=== PATIENT | female | born 1990 | race Caucasian/White ===

== ENCOUNTER 2022-10-28 18:00 | Emergency (ER) | payer OTHER, SELFPAY ==
[2022-10-28] VITALS (7 sets, daily range): BP systolic 103–127; BP diastolic 59–73; PULSE 63–73; RESP 17–26; TEMP 36.8; O2SAT 98–100; BMI 26.6
--- NOTE | 2022-10-28 18:45 | DI.RAD.S_ITS ---
PROCEDURE: XR CHEST 1V INDICATIONS: chest pain, + , Ok'd by Doc. TECHNIQUE: One view of the chest was acquired. COMPARISON: None. FINDINGS: Surgical changes and devices: None. Lungs and pleura: Lungs are clear. No pleural effusions or pneumothorax. Mediastinum: Mediastinal contours appear normal. Heart size is normal. Bones and chest wall: No suspicious bony lesions. Overlying soft tissues appear unremarkable. IMPRESSION: No acute cardiopulmonary process. Dictated by: Terrence Lora M.D. on 10/28/2022 at 19:53 Approved by: Terrence Lora M.D. on 10/28/2022 at 19:53
[2022-10-28 18:58] LABS: Add Manual Diff / Slide Review NO; Basophils Absolute Auto 0 /uL (0-100); Basophils Percent Auto 0.3 % (0-2); Eosinophils Absolute Auto 100 /uL (0-450); Eosinophils Percent Auto 0.8 % (2-4); Lymphocytes Absolute Auto 2700 /uL (1100-4500); Lymphocytes Percent Auto 19.2 % (25-40); Mean Corpuscular HGB Conc 34.2 % (30-36); Mean Corpuscular Hemoglobin 30.9 PG (26-34); Mean Corpuscular Volume 90.2 fL (80-100); Monocytes Absolute Auto 800 /uL (0-900); Monocytes Percent Auto 5.6 % (3-14); Neutrophils Absolute Auto 10200 /uL (1500-7000); Neutrophils Percent Auto 74.1 % (50-75); Platelet Count 206 X10^3/uL (150-400); Red Blood Cell Count 4.21 X10^6/uL (4.0-5.2); Red Cell Distribution Width 12.9 % (11.6-14.8); White Blood Cell Count 13.8 X10^3/uL (4.5-11.0)
[2022-10-28 19:04] LABS: INR 1.1 (0.9-1.3); Prothrombin Time 12.1 SECONDS (10.1-12.7)
[2022-10-28 19:07] LABS: PTT Partial Thromboplastin Tim 28 SECONDS (26-36)
[2022-10-28 19:14] LABS: Alanine Aminotransferase 19 IU/L (<35); Albumin 4.2 g/dL (3.5-5.0); Albumin Globulin Ratio 1.3 (1.0-2.8); Alkaline Phosphatase 68 U/L (38-126); Aspartate Aminotransferase 25 IU/L (14-36); BUN Creatinine Ratio 15.8 (6-22); Bilirubin Total 0.9 mg/dL (0.2-1.3); Blood Urea Nitrogen 9 mg/dL (7-17); Calcium 8.7 mg/dL (8.4-10.2); Carbon Dioxide 24 mmol/L (22-32); Chloride 99 mmol/L (98-107); Creatine Kinase 63 U/L (30-135); Estimated Glomerular Filt Rate > 60 mL/min (>60); Globulin 3.3 g/dL (1.7-4.1); Glucose 88 mg/dL (70-100); HEMOLYSIS < 15 (0-50); Lipase 67 U/L (23-300); Magnesium 1.9 mg/dL (1.6-2.3); Potassium 3.5 mmol/L (3.4-5.1); Sodium 132 mmol/L (137-145); Total Protein 7.5 g/dL (6.3-8.2)
[2022-10-28 19:25] LABS: NT-proBNP (BNP-Adult 18+) 82 pg/mL (<125); Troponin I < 0.012 ng/mL (0.01-0.034)
--- NOTE | 2022-10-28 22:45 | ED_ITS ---
HPI - Chest Pain General Chief Complaint: Chest Pain Stated Complaint: new onset chest pain Time Seen by Provider: 10/28/22 21:55 Source: patient Mode of arrival: Ambulatory Limitations: no limitations History of Present Illness HPI narrative: Patient is a 32-year-old healthy female presents today with right-sided chest pain. She says history yesterday hurts when she takes deep breath seems to be in the same area not reproducible with palpation. She denies any fever chills or cough. sHe is no abdominal pain nausea vomiting or vaginal bleeding. She is not having any shortness of breath. She is followed by OB she had an ultrasound yesterday which showed an IUP. Related Data Allergies Allergy/AdvReac Type Severity Reaction Status Date / Time No Known Drug Allergies Allergy Verified 10/28/22 18:13 Review of Systems Review of Systems ROS Unobtainable: All systems reviewed & are unremarkable except as noted in HPI and below Patient History Social History Smoking Status: Never smoker Smoking Status: Never smoker alcohol intake frequency: 0-2 drinks per day Substance Use Type: does not use Exam Initial Vital Signs Initial Vital Signs: Vital Signs Temperature 98.3 F 10/28/22 18:07 Pulse Rate 68 10/28/22 18:07 Respiratory Rate 20 10/28/22 18:07 Blood Pressure 122/69 10/28/22 18:07 Pulse Oximetry 99 10/28/22 18:07 Oxygen Delivery Method Room Air 10/28/22 18:07 GENERAL: Alert pleasant well-appearing 32-year-old female and in no acute distress. HEENT: Head atraumatic,EOMI, pupils reactive, face symmetric, moist mucous membranes CARDIOVASCULAR: Regular rate and rhythm without murmurs, rubs or gallops. RESPIRATORY: Breath sounds equal bilaterally, no wheezes rales or rhonchi. ABDOMEN: Soft, nontender. Normoactive bowel sounds all 4 quadrants. No guarding or rebound. EXTREMITIES: Normal range of motion, no clubbing or edema. Neurovascularly intact NEUROLOGICAL: Alert and oriented x4. SKIN: Warm, dry, no laceration, no petechiae, no rashes or lesions. Scores HEART Score Heart Score history: Slightly Suspicious Heart Score EKG: Normal Heart Score Age: < 45 years old Heart Score risk factors: No known risk factors Heart Score troponin: < or = to normal limit Heart Score Total: 0 Course Orders Ordered: ED Orders 10/28/22 22:55 EKG-12 Lead Stat Vital Signs Vital signs: Vital Signs - 8 hr 10/28/22 21:04 10/28/22 21:30 10/28/22 22:00 Pulse Rate 70 63 73 Respiratory Rate 26 H 24 Blood Pressure 127/73 Pulse Oximetry 98 100 100 10/28/22 22:07 10/28/22 22:07 10/28/22 22:30 Pulse Rate 65 Respiratory Rate 17 Blood Pressure 113/64 108/66 Pulse Oximetry 100 10/28/22 22:30 10/28/22 23:00 10/28/22 23:00 Pulse Rate 64 68 Respiratory Rate 17 18 Blood Pressure 103/59 L Pulse Oximetry 100 100 MDM - Chest Pain Lab Data 10/28/22 18:45 10/28/22 18:45 Labs: Lab Results 10/28/22 10/28/22 10/28/22 Range/Units 18:45 18:45 18:45 WBC 13.8 H (4.5-11.0) X10^3/uL RBC 4.21 (4.0-5.2) X10^6/uL Hgb 13.0 (12.0-16.0) g/dL Hct 38.0 (36-46) % MCV 90.2 (80-100) fL MCH 30.9 (26-34) PG MCHC 34.2 (30-36) % RDW 12.9 (11.6-14.8) % Plt Count 206 (150-400) X10^3/uL Neut % (Auto) 74.1 (50-75) % Lymph % (Auto) 19.2 L (25-40) % [place] % (Auto) 5.6 (3-14) % Eos % (Auto) 0.8 L (2-4) % Baso % (Auto) 0.3 (0-2) % Neut # (Auto) 63314 H (5514-5110) /uL Lymph # (Auto) 2700 (2738-9145) /uL [place] # (Auto) 800 (0-900) /uL Eos # (Auto) 100 (0-450) /uL Baso # (Auto) 0 (0-100) /uL PT 12.1 (10.1-12.7) SECONDS INR 1.1 (0.9-1.3) APTT 28 (26-36) SECONDS Sodium 132 L (137-145) mmol/L Potassium 3.5 (3.4-5.1) mmol/L Chloride 99 (98-107) mmol/L Carbon Dioxide 24 (22-32) mmol/L BUN 9 (7-17) mg/dL Creatinine 0.57 (0.52-1.04) mg/dL Estimated GFR > 60 (>60) mL/min BUN/Creatinine Ratio 15.8 (6-22) Glucose 88 (70-100) mg/dL Calcium 8.7 (8.4-10.2) mg/dL Magnesium 1.9 (1.6-2.3) mg/dL Total Bilirubin 0.9 (0.2-1.3) mg/dL AST 25 (14-36) IU/L ALT 19 (<35) IU/L Alkaline Phosphatase 68 (38-126) U/L Total Creatine Kinase 63 (30-135) U/L Troponin I < 0.012 (0.01-0.034) ng/mL NT-Pro-B Natriuret Pep 82 (<125) pg/mL Total Protein 7.5 (6.3-8.2) g/dL Albumin 4.2 (3.5-5.0) g/dL Globulin 3.3 (1.7-4.1) g/dL Albumin/Globulin Ratio 1.3 (1.0-2.8) Lipase 67 (23-300) U/L Urine Dip Bedside Urine Glucose Negative Bedside Urine Bilirubin - Negative Bedside Urine Ketone +/- 5 Urine Specific [place] 1.020 Bedside Urine Occult Blood - Negative Bedside Urine pH 6 Bedside Urine Protein - Negative Bedside Urine Urobilinogen - Negative Bedside Urine Nitrite - Negative Bedside Urine Leukocytes - Negative Esterase Imaging Data Chest x-ray: Radiologist's Impression: PROCEDURE:? XR CHEST 1V ? INDICATIONS:? chest pain, + , Ok'd by Doc. ? TECHNIQUE:? One view of the chest was acquired.? ? COMPARISON:? None. ? FINDINGS:? ? Surgical changes and devices:? None.? ? Lungs and pleura:? Lungs are clear.? No pleural effusions or pneumothorax.? ? Mediastinum:? Mediastinal contours appear normal.? Heart size is normal.? ? Bones and chest wall:? No suspicious bony lesions.? Overlying soft tissues appear unremarkable.? ? IMPRESSION:? No acute cardiopulmonary process. ? ? ? Dictated by: Terrence Lora M.D. on 10/28/2022 at 19:53 ? ? Approved by: Terrence Lora M.D. on 10/28/2022 at 19:53 ? ECG Data Interpretation: Sinus rhythm rate 67 FL interval 158 QRS [address] depression in inferior leads but also in V4 V5 and V6 without ST elevation no priors EKG 2. Sinus rhythm rate 64 FL interval [address] changes MDM Narrative Medical decision making narrative: Patient 32-year-old female presents today with right-sided chest discomfort w orse with breathing. She does ST nonspecific changes on her ECG without any prior blood work is overall reassuring. No evidence of pneumonia. She is not having any significant shortness of breath. At this time recommend outpatient follow-up Tylenol as needed. Unlikely to be any acute coronary syndrome. To not have any shortness of breath unlikely to be a pulmonary embolism. Blood work has been reviewed and is overall reassuring. No evidence of a UTI. This time recommend outpatient follow-up Tylenol as needed. Discharge Plan Departure Patient Disposition: Home Clinical Impression: Atypical chest pain Instructions: Common Discomforts and Bodily Changes During , DI for Atypical Chest Pain Activity Restrictions/Additional Instructions: *You have been diagnosed with atypical chest pain and *What to do: At this time please follow-up with your OB *Continue to take medications as directed Tylenol 1000 mg every 6 hours if needed for [id number] pain *Follow up with your primary care provider in 2-3 days or call [phone] *Return to ER if you should have increasing pain shortness of breath fever or any new, worsening or concerning symptoms Stand Alone Forms: Patient Portal/API
== END 2022-10-28 23:21 | disposition home or self-care (01) ==
PROVIDERS: Emergency Medicine; Emergency Provider Emergency Medicine
DX: O26.90 Pregnancy related conditions, unspecified, unspecified trimester (principal); R07.9 Chest pain, unspecified
CPT/HCPCS: 36415; 71045; 80053; 81003; 82550; 83690; 83735; 83880; 84484; 85025; 85610; 85730; 93005; 93010; 99284